=== PATIENT | female | born 1990 | race Caucasian/White ===

== ENCOUNTER 2016-09-20 15:38 | Emergency (ER) | payer OTHER ==
[~2016-09-20] VITALS: Ht 162.6 cm; Wt 90.7 kg
[~2016-09-20 15:38] MED LIST: DICLEGIS 10 MG-1 TCP PO; IBUPROFEN PRN PAIN; KEFLEX250 MG PO; MACROBID; MOTRIN800 MG PO; PRENATAL VITAMI1 T10 PO; PRENATAL VITS.; REGLAN1 MG/ML PO; ZOFRAN ODT4 MG PO; ZOFRAN4 M1 PO
[2016-09-20 16:21] VITALS: BP 126/72
--- NOTE | 2016-09-20 19:22 | NUR ---
Patient ambulated to bed 7. RN evaluating patient at bedside.
--- NOTE | 2016-09-20 19:32 | NUR ---
PT IS A 26/F THAT PRESENTS TO ED WITH C/O VOMITING AND RIGHT SIDED LOW BACK PAIN X1 WEEK. PT STATES NO OTHER MED HX. DENIES N/D; SKIN IS PINK/WARM/DRY; AAOX4 WITH EVEN AND STEADY GAIT; LUNGS CLEAR BL; HR EVEN AND REGULAR; PT DENIES ANY FEVER, CP, SOB, OR COUGH AT THIS TIME; PATIENT STATES PAIN OF 8/10 AT THIS TIME; VSS; PATIENT POSITIONED FOR COMFORT; HOB ELEVATED; BEDRAILS UP X2; BED DOWN. ER MD MADE AWARE OF PT STATUS.
[2016-09-20] MEDS ORDERED: NACL 0.9% 1,000 ML IV SCH (20:08)
[2016-09-20] MEDS ORDERED: KETOROLAC 30 MG/ML VIAL IVP ONE (20:10)
[2016-09-20] MEDS ORDERED: ONDANSETRON 4 MG ODT PO ONE (20:10)
[2016-09-20] MEDS ORDERED: ONDANSETRON 4 MG/2 ML VIAL IVP ONE (20:10)
--- NOTE | 2016-09-20 20:30 | NUR ---
PT TAKEN OFF UNIT TO CT VIA WHEELCHAIR
--- NOTE | 2016-09-20 20:38 | NUR ---
PT BACK ON UNIT FROM CT
[2016-09-20 21:57] VITALS: BP 118/58
--- NOTE | 2016-09-20 21:57 | NUR ---
Patient discharged with v/s stable. Written and verbal after care instructions given and explained. Patient alert, oriented and verbalized understanding of instructions. Ambulatory with steady gait. All questions addressed prior to discharge. ID band removed. Patient advised to follow up with PMD. Rx of ZOFRAN AND MOTRIN given. Patient educated on indication of medication including possible reaction and side effects. Opportunity to ask questions provided and answered.
== END 2016-09-20 21:57 | disposition home or self-care (01) ==
LOC: MED 15:38
DX: R11.2 Nausea with vomiting, unspecified (principal); R10.32 Left lower quadrant pain; F17.200 Nicotine dependence, unspecified, uncomplicated
CPT/HCPCS: 36415; 74176; 80053; 81001; 81025; 83690; 85025; 96361; 96374; 96375; 99285; J1885; J2405; J7030; S0119

== ENCOUNTER 2016-11-13 22:26 | Emergency (ER) | payer OTHER ==
[~2016-11-13] VITALS: Ht 162.6 cm; Wt 90.3 kg
[2016-11-13 22:31] VITALS: BP 122/69
[2016-11-13] MEDS ORDERED: KETOROLAC 30 MG/ML VIAL IM ONE (22:45)
--- NOTE | 2016-11-13 23:00 | NUR ---
PT TAKEN TO BED 8
--- NOTE | 2016-11-13 23:14 | NUR ---
PT RETURN FROM XRAY
--- NOTE | 2016-11-13 23:30 | NUR ---
26Y/F PATIENT PRESENTS TO ED WITH C/O RT. WRIST PAIN X 2 WKS. PATIENT TRIPPED AND FELL ON RT. SIDE. RT. WRIST PAIN. AAO X4, AMBULATORY WITH STEADY GAIT. RT. WRIST PAIN, NO SWELLING, ABLE TO MOVE ALL FINGERS, CAP REFILL <3 SECS. VSS, NO S/SX OF DISTRESS. ER MD MADE AWARE OF PATIENT STATUS.
--- NOTE | 2016-11-13 23:50 | NUR ---
Patient discharged with v/s stable. Written and verbal after care instructions given and explained. Patient alert, oriented and verbalized understanding of instructions. Ambulatory with steady gait. All questions addressed prior to discharge. ID band removed. Patient advised to follow up with PMD. Rx of NAPROSYN 500 MG given. Patient educated on indication of medication including possible reaction and side effects. Opportunity to ask questions provided and answered. RT. WRIST IMMOBILIZER APPLIED.
[2016-11-14 00:08] VITALS: BP 125/70
== END 2016-11-13 23:50 | disposition home or self-care (01) ==
LOC: MED 22:27
DX: S63.501A Unspecified sprain of right wrist, initial encounter (principal); F17.210 Nicotine dependence, cigarettes, uncomplicated; W19.XXXA Unspecified fall, initial encounter; Y93.51 Activity, roller skating (inline) and skateboarding; Y92.89 Other specified places as the place of occurrence of the external cause; Y99.8 Other external cause status
CPT/HCPCS: 29125; 73110; 96372; 99284; J1885

== ENCOUNTER 2016-11-24 07:12 | Emergency (ER) | payer OTHER ==
[~2016-11-24] VITALS: Ht 162.6 cm; Wt 93.4 kg
[2016-11-24 07:23] VITALS: BP 117/70
[2016-11-24] MEDS ORDERED: ONDANSETRON 4 MG ODT PO ONE (07:35)
--- NOTE | 2016-11-24 07:37 | NUR ---
PT CAME TO ER DUE TO VOMITING SINCE THURSDAY.PT STATES SHE VOMITTED DARK COLOR BLOOD THIS MORNING;W/STOMACH PAIN OF 5/10 NON RADIATING;DIARRHEA THIS MORNING;PT STATES SHE GIMENEZ S A THROBBING HEADACHE;DENIES CP/SOB/F AT THIS TIME;AAOX4;NO ACUTE DISTRESS NOTED;TUBAL LIGATION WAS DONE 2 YEARS AGO;STEADY GAIT;UNLABORED BREATHING;HOB ELEVATED;NEEDS ATTENDED;SAFETY MEASURES DONE;POSITIONED FOR COMFORT.
--- NOTE | 2016-11-24 07:37 | NUR ---
Note undone in EDM - 11/24/16 at 0801 by MEDANTWAN PT CAME TO ER DUE TO VOMITING SINCE THURSDAY.PT STATES SHE VOMITTED DARK COLOR BLOOD THIS MORNING;W/STOMACH PAIN OF 5/10 NON RADIATING;PT STATES SHE GIMENEZ S A THROBBING HEADACHE;DENIES CP/SOB/F/D AT THIS TIME;AAOX4;NO ACUTE DSITRESS NOTED;TUBAL LIGATION WAS DONE 2 YEARS AGO;STEADY GAIT;UNLABORED BREATHING;HOB ELEVATED;NEEDS ATTENDED;SAFETY MEASURES DONE;POSITIONED FOR COMFORT.
--- NOTE | 2016-11-24 07:40 | NUR ---
MEDS IS NOT AVAILABLE IN THE [facility] NULL CALLED PHARMACY;THEY WILL SEND MEDS JOEL.
--- NOTE | 2016-11-24 08:24 | NUR ---
PT STATES SHE STILL FEELS NAUSEATED;PT VOMITTED; NO ACUTE DISTRESS NOTED AT THIS TIME;WILL CONTINUE TO MONITOR PT.
[2016-11-24] MEDS ORDERED: NACL 0.9% 1,000 ML IV SCH (08:34)
[2016-11-24] MEDS ORDERED: ONDANSETRON 4 MG/2 ML VIAL IVP ONE (08:35)
--- NOTE | 2016-11-24 09:24 | NUR ---
PT RESTING ON BED;NO ACUTE DISTRESS NOTED AT THIS TIME;NEEDS ATTENDED;WILL CONTINUE TO MONITOR PT;
[2016-11-24] MEDS ORDERED: NACL 0.9% 1,000 ML IV ONE (09:45)
--- NOTE | 2016-11-24 10:13 | NUR ---
PT STATES SHE'S NOT FEELING NAUSEATED ANYMORE.WILL CONTINUE TO MONITOR PT.
[2016-11-24] MEDS ORDERED: SUMAtriptan 6 MG/0.5 ML VIAL SUBQ ONE (10:35)
[2016-11-24] MEDS ORDERED: diphenhydrAMINE 50 MG/ML VIAL IVP ONE (10:35)
[2016-11-24] MEDS ORDERED: PROCHLORPERAZINE 10 MG/2 ML VIAL IVP ONE (10:35)
--- NOTE | 2016-11-24 11:32 | NUR ---
PT SLEEPING;NO ACUTE DISTRESS NOTED AT THIS TIME;WILL CONTINUE TO MONITOR PT.
--- NOTE | 2016-11-24 13:20 | NUR ---
Patient discharged with v/s stable. Written and verbal after care instructions given and explained.Patient alert, oriented and verbalized understanding of instructions. Ambulatory with steady gait. All questions addressed prior to discharge. ID band removed. Patient advised to follow up with PMD. Rx of ZOFRAN given. Patient educated on indication of medication including possible reaction and side effects. Opportunity to ask questions provided and answered.
[2016-11-24 14:40] VITALS: BP 128/78
== END 2016-11-24 13:20 | disposition home or self-care (01) ==
LOC: MED 07:12
DX: K52.9 Noninfective gastroenteritis and colitis, unspecified (principal); G43.909 Migraine, unspecified, not intractable, without status migrainosus
CPT/HCPCS: 36415; 80053; 81001; 82150; 82272; 83690; 85025; 87045; 87427; 89055; 96361; 96372; 96374; 96375; 99284; J0780; J1200; J2405; J3030; J7030; S0119

== ENCOUNTER 2017-06-24 12:03 | Emergency (ER) | payer OTHER ==
[~2017-06-24] VITALS: Ht 157.5 cm; Wt 90.3 kg
[~2017-06-24 12:03] MED LIST changes: -DICLEGIS 10 MG-1 TCP PO; +IBUP-974 PO; -IBUPROFEN PRN PAIN; -KEFLEX250 MG PO; -MACROBID; -MOTRIN800 MG PO; -PRENATAL VITAMI1 T10 PO; -PRENATAL VITS.; -REGLAN1 MG/ML PO; -ZOFRAN ODT4 MG PO; -ZOFRAN4 M1 PO
[2017-06-24 12:10] VITALS: BP 126/58
--- NOTE | 2017-06-24 12:27 | NUR ---
ASSUMED NURSING CARE, CONCUR WITH TRIAGE ASSESSMENT. PLACED IN ER 11, ORIENTED TO PLAN OF CARE.
[2017-06-24] MEDS ORDERED: ONDANSETRON 4 MG ODT PO ONE (12:50)
[2017-06-24 13:09] LABS: APPEARANCE,URINE CLEAR (CLEAR); BILIRUBIN,URINE NEGATIVE (NEGATIVE); BLOOD, URINE NEGATIVE (NEGATIVE); COLOR,URINE YELLOW (YELLOW); LEUKOCYTE ESTERASE ,URINE NEGATIVE (NEGATIVE); NITRITE, URINE NEGATIVE (NEGATIVE); UGLUCOSE NEGATIVE (NEGATIVE)
--- NOTE | 2017-06-24 14:03 | NUR ---
PATIENT RESTING IN GURNEY, AWAITING CT ABDOMEN. VSWNL, NO DISTRESS.
--- NOTE | 2017-06-24 14:41 | NUR ---
Patient back from CT via wheelchair.
[2017-06-24] MEDS ORDERED: KETOROLAC 30 MG/ML VIAL IM ONE (15:35)
[2017-06-24 16:00] VITALS: BP 110/60
--- NOTE | 2017-06-24 16:09 | NUR ---
DISPO AND MEDICAL DECISION MAKING, DC HOME WITH INSTRUCTIONS AND PRESCRIPTION, PATIENT VERBALIZING RELIEF FROM PAIN. PATIENT UNDERSTANDING ALL INSTRUCTIONS ACCORDINGLY.
== END 2017-06-24 16:14 | disposition home or self-care (01) ==
LOC: MED 12:03
DX: N20.0 Calculus of kidney (principal); Z79.899 Other long term (current) drug therapy
CPT/HCPCS: 74176; 81003; 96372; 99285; J1885; S0119

== ENCOUNTER 2017-07-01 10:39 | Emergency (ER) | payer OTHER ==
[~2017-07-01] VITALS: Ht 162.6 cm; Wt 89.8 kg
[2017-07-01 10:56] VITALS: BP 139/79
[2017-07-01] MEDS: HYDROmorphone 1 MG/ML AMP IM ONE (11:29)
[2017-07-01] MEDS: KETOROLAC 60 MG/2 ML VIAL IM ONE (11:29)
[2017-07-01] MEDS ORDERED: HYDROmorphone PFS 2 MG/ML SYR ONE (11:32)
[2017-07-01 12:33] LABS: APPEARANCE,URINE CLEAR (CLEAR); BILIRUBIN,URINE NEGATIVE (NEGATIVE); BLOOD, URINE 1+ (NEGATIVE); COLOR,URINE YELLOW (YELLOW); LEUKOCYTE ESTERASE ,URINE NEGATIVE (NEGATIVE); NITRITE, URINE NEGATIVE (NEGATIVE); PH,URINE 6.5 (5.0-9.0); UGLUCOSE NEGATIVE (NEGATIVE)
[2017-07-01 13:03] LABS: RBC,URINE NONE SEEN /HPF (0-5); WBC,URINE 0-5 (RARE) /HPF (0-5)
[2017-07-01] MEDS: ONDANSETRON 4 MG ODT PO ONE (13:18)
[2017-07-01] MEDS: diphenhydrAMINE 50 MG/ML VIAL IM ONE (13:18)
[2017-07-01 13:31] VITALS: BP 125/81
== END 2017-07-01 13:31 | disposition home or self-care (01) ==
LOC: MED 10:39
DX: N20.0 Calculus of kidney (principal)
CPT/HCPCS: 81001; 81025; 96372; 99284; J1170; J1200; J1885; S0119

== ENCOUNTER 2017-11-27 00:25 | Emergency (ER) | payer OTHER ==
[~2017-11-27] VITALS: Ht 162.6 cm; Wt 91.7 kg
[2017-11-27 00:32] VITALS: BP 112/73
--- NOTE | 2017-11-27 00:43 | NUR ---
27Y F BIB SELF C/O RIGHT FLANK PAIN X 1 DAY. PT DENIES ANY N/V/D/,SOB, CP AT THE MOMENT. PT STATES PAIN IS INTERMITTENT, NON RADIAITING. PT STATES SHE ALSO HAS NON TRAUMATIC BACK PAIN. PT STATES SHE HAD SIMILAR PAIN WHEN SHE HAS UTI, BUT PRESENT SYMPTOMS ARE WORSE. PT AMBULATED TO ER BED WITH STEADY GAIT. ER MD DR LANE MADE AWARE
[2017-11-27] MEDS ORDERED: NACL 0.9% 1,000 ML IV ONE (01:09)
[2017-11-27] MEDS ORDERED: MORPHINE SULFATE 4 MG/ML SYR IVP ONE (01:10)
[2017-11-27] MEDS ORDERED: ONDANSETRON 4 MG/2 ML VIAL IVP ONE (01:10)
[2017-11-27 01:25] LABS: BASOPHILS # (AUTO) 0.1 K/uL (0.00-0.22); BASOPHILS % (AUTO) 0.6 % (0.0-2.0); EOSINOPHILS # (AUTO) 0.3 K/uL (0-0.4); EOSINOPHILS % (AUTO) 3.4 % (0.0-4.0); HEMATOCRIT 43.8 % (36-48); HEMOGLOBIN 14.8 g/dL (12.0-16.0); LYMPHOCYTES # (AUTO) 3.4 K/uL (2.5-16.5); LYMPHOCYTES % (AUTO) 33.1 % (20.5-51.1); MEAN CORPUSCULAR HEMOGLOBIN 30 pg (27-31); MEAN CORPUSCULAR HGB CONC 34 g/dL (33-37); MEAN CORPUSCULAR VOLUME 89.5 fL (80-94); MONOCYTES # (AUTO) 0.8 K/uL (0.8-1.0); MONOCYTES % (AUTO) 7.7 % (1.7-9.3); NEUTROPHILS # (AUTO) 5.6 K/uL (1.8-7.7); NEUTROPHILS % (AUTO) 55.2 % (42.2-75.2); PLATELET COUNT (AUTO) 330 K/uL (140-450); RED BLOOD CELL COUNT(AUTO) 4.89 MIL/uL (4.20-5.40); WHITE BLOOD COUNT (AUTO) 10.2 K/uL (4.8-10.8)
[2017-11-27 01:32] LABS: ANION GAP 12.4 (8-16); CARBON DIOXIDE 30.3 mmol/L (21-32); CREATININE 0.8 mg/dL (0.6-1.3); POTASSIUM 3.7 mmol/L (3.5-5.1)
[2017-11-27 01:38] LABS: ALBUMIN 3.8 g/dL (3.4-5.0); TOTAL BILIRUBIN 0.2 mg/dL (0.0-1.0)
--- NOTE | 2017-11-27 02:20 | NUR ---
IV removed, catheter intact and site benign. Applied folded 4x4 gauze and tape to stop bleeding.
--- NOTE | 2017-11-27 02:22 | NUR ---
Patient discharged with v/s stable. Written and verbal after care instructions given and explained. Patient alert, oriented and verbalized understanding of instructions. Ambulatory with steady gait. All questions addressed prior to discharge. ID band removed. Patient advised to follow up with PMD. Rx of NAPROSYN 500MG given. Patient educated on indication of medication including possible reaction and side effects. Opportunity to ask questions provided and answered.
[2017-11-27 02:23] VITALS: BP 115/63
== END 2017-11-27 02:23 | disposition home or self-care (01) ==
LOC: MED 00:25
DX: R10.9 Unspecified abdominal pain (principal); Z98.51 Tubal ligation status; F17.210 Nicotine dependence, cigarettes, uncomplicated
CPT/HCPCS: 36415; 74176; 80053; 81002; 81025; 83690; 85025; 96361; 96374; 96375; 99285; J2270; J2405; J7030

== ENCOUNTER 2018-04-26 22:11 | Emergency (ER) | payer OTHER ==
[~2018-04-26] VITALS: Ht 162.6 cm; Wt 90.7 kg
[2018-04-26 22:14] VITALS: BP 120/76
[2018-04-26] MEDS: NACL 0.9% 1,000 ML IV ONE (23:40)
[2018-04-26] MEDS: KETOROLAC 30 MG/ML VIAL IVP ONE (23:40)
[2018-04-26 23:41] LABS: BASOPHILS # (AUTO) 0.2 K/uL (0.00-0.22); BASOPHILS % (AUTO) 1.2 % (0.0-2.0); EOSINOPHILS # (AUTO) 0.6 K/uL (0-0.4); EOSINOPHILS % (AUTO) 4.1 % (0.0-4.0); HEMATOCRIT 38.5 % (36-48); HEMOGLOBIN 12.9 g/dL (12.0-16.0); LYMPHOCYTES # (AUTO) 2.9 K/uL (2.5-16.5); LYMPHOCYTES % (AUTO) 20.1 % (20.5-51.1); MEAN CORPUSCULAR HEMOGLOBIN 30 pg (27-31); MEAN CORPUSCULAR HGB CONC 34 g/dL (33-37); MEAN CORPUSCULAR VOLUME 89.7 fL (80-94); MONOCYTES # (AUTO) 0.7 K/uL (0.8-1.0); MONOCYTES % (AUTO) 5.1 % (1.7-9.3); NEUTROPHILS # (AUTO) 10.1 K/uL (1.8-7.7); NEUTROPHILS % (AUTO) 69.5 % (42.2-75.2); PLATELET COUNT (AUTO) 227 K/uL (140-450); RED BLOOD CELL COUNT(AUTO) 4.29 MIL/uL (4.20-5.40); RED CELL DISTRIBUTION WIDTH 13.1 % (11.6-13.7)
[2018-04-26 23:56] LABS: ANION GAP 9.7 (8-16); CARBON DIOXIDE 27.7 mmol/L (21-32); CREATININE 0.7 mg/dL (0.6-1.3); POTASSIUM 3.4 mmol/L (3.5-5.1)
[2018-04-26 23:59] LABS: WHITE BLOOD COUNT (AUTO) 14.5 K/uL (4.8-10.8)
[2018-04-27 00:03] LABS: ALBUMIN 2.9 g/dL (3.4-5.0); TOTAL BILIRUBIN 0.2 mg/dL (0.0-1.0)
[2018-04-27 00:40] VITALS: BP 128/79
== END 2018-04-27 00:40 | disposition home or self-care (01) ==
LOC: MED 22:11
DX: J02.8 Acute pharyngitis due to other specified organisms (principal); B96.89 Other specified bacterial agents as the cause of diseases classified elsewhere; R10.9 Unspecified abdominal pain; R11.0 Nausea; M54.9 Dorsalgia, unspecified; Z79.899 Other long term (current) drug therapy
CPT/HCPCS: 36415; 71045; 80053; 85025; 87081; 96374; 99285; J1885; Q0092; 99284

== ENCOUNTER 2018-05-03 21:34 | Emergency (ER) | payer OTHER ==
[~2018-05-03] VITALS: Ht 162.6 cm; Wt 90.7 kg
[2018-05-03 21:53] VITALS: BP 112/60
--- NOTE | 2018-05-03 21:55 | NUR ---
TO LOBBY A/W BED, DAVID MONTEIRO, LON NOTED
[2018-05-03 23:25] VITALS: BP 108/63
--- NOTE | 2018-05-04 01:55 | NUR ---
PATIENT LEFT WITHOUT BEING SEEN BY DR. ALLEN. NO FURTHER CARE PROVIDED FOR PATIENT.
[2018-05-04 02:54] LABS: APPEARANCE,URINE CLOUDY (CLEAR); BILIRUBIN,URINE NEGATIVE (NEGATIVE); BLOOD, URINE 3+ (NEGATIVE); COLOR,URINE YELLOW (YELLOW); LEUKOCYTE ESTERASE ,URINE 1+ (NEGATIVE); NITRITE, URINE NEGATIVE (NEGATIVE); PH,URINE 6.5 (5.0-9.0); UGLUCOSE NEGATIVE (NEGATIVE)
[2018-05-04 03:13] LABS: RBC,URINE TOO NUMEROUS TO COUN /HPF (0-5); WBC,URINE TOO MANY TO COUNT /HPF (0-5)
== END 2018-05-04 01:55 | disposition left against medical advice (07) ==
LOC: MED 21:34
DX: R31.9 Hematuria, unspecified (principal); Z53.21 Procedure and treatment not carried out due to patient leaving prior to being seen by health care provider
CPT/HCPCS: 81001; 87086; 99281

== ENCOUNTER 2018-05-04 10:57 | Emergency (ER) | payer OTHER ==
[~2018-05-04] VITALS: Ht 162.6 cm; Wt 91.6 kg
[2018-05-04 11:20] VITALS: BP 111/67
[2018-05-04] MEDS ORDERED: cefTRIAXone 1,000 MG VIAL ONE (12:30)
[2018-05-04] MEDS: NACL 0.9% 1,000 ML IV SCH (12:42)
[2018-05-04] MEDS: ONDANSETRON 4 MG/2 ML VIAL IVP ONE (12:43)
[2018-05-04] MEDS: KETOROLAC 30 MG/ML VIAL IVP ONE (12:44)
[2018-05-04] MEDS: cefTRIAXone 1,000 MG in DEXT 5% MINI-BAG PLUS 50 ML IV ONE (12:44)
[2018-05-04 13:05] LABS: BASOPHILS % (AUTO) 0.4 % (0.0-2.0); EOSINOPHILS # (AUTO) 0.2 K/uL (0-0.4); EOSINOPHILS % (AUTO) 1.7 % (0.0-4.0); HEMATOCRIT 40.8 % (36-48); HEMOGLOBIN 13.6 g/dL (12.0-16.0); LYMPHOCYTES # (AUTO) 2.1 K/uL (2.5-16.5); LYMPHOCYTES % (AUTO) 21.2 % (20.5-51.1); MEAN CORPUSCULAR HEMOGLOBIN 30 pg (27-31); MEAN CORPUSCULAR HGB CONC 33 g/dL (33-37); MEAN CORPUSCULAR VOLUME 89.9 fL (80-94); MONOCYTES # (AUTO) 0.7 K/uL (0.8-1.0); MONOCYTES % (AUTO) 6.6 % (1.7-9.3); NEUTROPHILS # (AUTO) 7.1 K/uL (1.8-7.7); NEUTROPHILS % (AUTO) 70.1 % (42.2-75.2); PLATELET COUNT (AUTO) 359 K/uL (140-450); RED BLOOD CELL COUNT(AUTO) 4.53 MIL/uL (4.20-5.40); RED CELL DISTRIBUTION WIDTH 12.9 % (11.6-13.7); WHITE BLOOD COUNT (AUTO) 10.1 K/uL (4.8-10.8)
[2018-05-04 13:16] LABS: CARBON DIOXIDE 26.5 mmol/L (21-32); CREATININE 0.8 mg/dL (0.6-1.3); POTASSIUM 3.5 mmol/L (3.5-5.1)
[2018-05-04 13:18] LABS: APPEARANCE,URINE CLOUDY (CLEAR); BILIRUBIN,URINE NEGATIVE (NEGATIVE); BLOOD, URINE 3+ (NEGATIVE); COLOR,URINE YELLOW (YELLOW); LEUKOCYTE ESTERASE ,URINE NEGATIVE (NEGATIVE); NITRITE, URINE POSITIVE (NEGATIVE); UGLUCOSE NEGATIVE (NEGATIVE)
[2018-05-04 13:22] LABS: ALBUMIN 3.2 g/dL (3.4-5.0); TOTAL BILIRUBIN 0.2 mg/dL (0.0-1.0)
[2018-05-04 13:32] LABS: RBC,URINE 3-10 (FEW) /HPF (0-5); WBC,URINE 0-5 (RARE) /HPF (0-5)
[2018-05-04 13:33] LABS: URINE AMORPHOUS URATE 2+ /HPF (None Seen)
[2018-05-04 15:10] VITALS: BP 114/64
== END 2018-05-04 15:10 | disposition home or self-care (01) ==
LOC: MED 10:57
DX: N12 Tubulo-interstitial nephritis, not specified as acute or chronic (principal); F17.200 Nicotine dependence, unspecified, uncomplicated; Z79.899 Other long term (current) drug therapy; Z87.442 Personal history of urinary calculi
CPT/HCPCS: 36415; 80053; 81001; 81025; 83605; 85025; 87040; 87086; 87186; 96365; 96375; 99284; J0696; J1885; J2405; J7030

== ENCOUNTER 2018-05-24 07:53 | Emergency (ER) | payer OTHER ==
[~2018-05-24] VITALS: Ht 162.6 cm; Wt 90.3 kg
[2018-05-24 08:10] VITALS: BP 116/78
[2018-05-24] MEDS ORDERED: NACL 0.9% 500 ML IV ONE ×2 (08:16)
[2018-05-24] MEDS ORDERED: ONDANSETRON 4 MG/2 ML VIAL IVP ONE (08:20)
[2018-05-24] MEDS ORDERED: KETOROLAC 30 MG/ML VIAL IVP ONE (08:20)
[2018-05-24 10:54] VITALS: BP 116/78
== END 2018-05-24 10:32 | disposition home or self-care (01) ==
LOC: MED 07:53
DX: T14.8XXA Other injury of unspecified body region, initial encounter (principal); M54.9 Dorsalgia, unspecified; R50.9 Fever, unspecified; R51 Headache; R11.2 Nausea with vomiting, unspecified; Z79.899 Other long term (current) drug therapy; Z87.442 Personal history of urinary calculi; X58.XXXA Exposure to other specified factors, initial encounter; Y93.89 Activity, other specified; Y92.89 Other specified places as the place of occurrence of the external cause; Y99.8 Other external cause status
CPT/HCPCS: 74176; 96361; 96374; 96375; 99284; J1885; J2405; J7030; 81002; 81025

== ENCOUNTER 2018-08-14 08:25 | Emergency (ER) | payer OTHER ==
[~2018-08-14] VITALS: Ht 162.6 cm; Wt 93.0 kg
[2018-08-14 08:34] VITALS: BP 108/71
[2018-08-14 09:49] VITALS: BP 110/70
== END 2018-08-14 09:49 | disposition home or self-care (01) ==
LOC: MED 08:25
DX: S80.01XA Contusion of right knee, initial encounter (principal); S80.211A Abrasion, right knee, initial encounter; Z79.1 Long term (current) use of non-steroidal anti-inflammatories (NSAID); Z87.442 Personal history of urinary calculi; W19.XXXA Unspecified fall, initial encounter; Y93.89 Activity, other specified; Y92.89 Other specified places as the place of occurrence of the external cause; Y99.8 Other external cause status
CPT/HCPCS: 73562; 99283; Q0092

== ENCOUNTER 2020-12-06 14:27 | Emergency (ER) | payer OTHER ==
[~2020-12-06] VITALS: Ht 162.6 cm; Wt 90.7 kg
[2020-12-06 14:31] VITALS: BP 119/68
--- NOTE | 2020-12-06 14:35 | NUR ---
PT TAKEN TO BED 1.
--- NOTE | 2020-12-06 14:51 | NUR ---
30/F PRESENTS TO ED WITH C/O RIGHT LOWER QUADRANT SHARP/STABBING 02/09 PAIN X10 DAYS. PATIENT STATES THE PAIN BEGAN 10 DAYS AGO AND HAS PROGRESSIVELY GOTTEN WORSE, AND IS NOW WORSENING WITH MOVEMENT AND WALKING AND STATES RLQ IS TENDER TO TOUCH. PATIENT STATES SHE HAS NOT TAKEN ANYTHING FOR THE PAIN. PATIENT STATES SHE HAS NAUSEA BUT DENIES VOMITING/DIARRHEA. PATIENT DENIES DYSURIA, HEMATURIA.
[2020-12-06] MEDS ORDERED: MORPHINE SULFATE 4 MG/ML SYR IVP ONE (15:35)
[2020-12-06] MEDS ORDERED: NACL 0.9% 1,000 ML IV ONE (15:35)
[2020-12-06] MEDS ORDERED: ONDANSETRON 4 MG/2 ML VIAL IVP ONE (15:35)
[2020-12-06 15:56] LABS: BASOPHILS # (AUTO) 0.1 K/uL (0.00-0.22); BASOPHILS % (AUTO) 0.8 % (0.0-2.0); EOSINOPHILS # (AUTO) 0.3 K/uL (0-0.4); EOSINOPHILS % (AUTO) 3.1 % (0.0-4.0); HEMATOCRIT 39.1 % (36-48); HEMOGLOBIN 13.4 g/dL (12.0-16.0); LYMPHOCYTES # (AUTO) 2.6 K/uL (2.5-16.5); LYMPHOCYTES % (AUTO) 26.3 % (20.5-51.1); MEAN CORPUSCULAR HEMOGLOBIN 31 pg (27-31); MEAN CORPUSCULAR HGB CONC 34 g/dL (33-37); MEAN CORPUSCULAR VOLUME 89.9 fL (80-94); MONOCYTES # (AUTO) 0.6 K/uL (0.8-1.0); MONOCYTES % (AUTO) 5.6 % (1.7-9.3); NEUTROPHILS # (AUTO) 6.3 K/uL (1.8-7.7); NEUTROPHILS % (AUTO) 64.2 % (42.2-75.2); PLATELET COUNT (AUTO) 310 K/uL (140-450); RED BLOOD CELL COUNT(AUTO) 4.35 MIL/uL (4.20-5.40); RED CELL DISTRIBUTION WIDTH 12.8 % (11.6-13.7); WHITE BLOOD COUNT (AUTO) 9.8 K/uL (4.8-10.8)
[2020-12-06 16:19] LABS: ALBUMIN 3.8 g/dL (3.4-5.0); ANION GAP 9.3 (8-16); CARBON DIOXIDE 28.3 mmol/L (21-32); CREATININE 0.7 mg/dL (0.6-1.3); POTASSIUM 3.6 mmol/L (3.5-5.1); TOTAL BILIRUBIN 0.3 mg/dL (0.0-1.0)
--- NOTE | 2020-12-06 16:34 | NUR ---
PATIENT TAKEN TO CT VIA W/C
--- NOTE | 2020-12-06 16:45 | NUR ---
PATIENT RETURNED FROM CT
--- NOTE | 2020-12-06 17:15 | NUR ---
PATIENT IS RESTING, DENIES PAIN OR NAUSEA RIGHT NOW. PLACED IN A GOWN ON THE INSPECTOR PAWNSHOP DETAIL. PATIENT PLACED IN A POSITION OF COMFORT.
--- NOTE | 2020-12-06 17:25 | NUR ---
ULTRASOUND AT BEDSIDE
[2020-12-06] MEDS ORDERED: ACET-2619 PO (18:55)
[2020-12-06] MEDS ORDERED: ONDA-24 PO (18:55)
[2020-12-06] MEDS ORDERED: ACET-9527 PO (18:55)
[2020-12-06 19:01] LABS: APPEARANCE,URINE CLEAR (CLEAR); BILIRUBIN,URINE NEGATIVE (NEGATIVE); BLOOD, URINE NEGATIVE (NEGATIVE); COLOR,URINE YELLOW (YELLOW); LEUKOCYTE ESTERASE ,URINE NEGATIVE (NEGATIVE); NITRITE, URINE NEGATIVE (NEGATIVE); UGLUCOSE NEGATIVE (NEGATIVE)
--- NOTE | 2020-12-06 19:07 | NUR ---
Patient discharged with v/s stable. Written and verbal after care instructions given and explained. Patient alert, oriented and verbalized understanding of instructions. Ambulatory with steady gait. All questions addressed prior to discharge. ID band removed. Patient advised to follow up with PMD. Rx of [place], Tylenol and Zofran given. Patient educated on indication of medication including possible reaction and side effects. Opportunity to ask questions provided and answered.
[2020-12-06 19:12] VITALS: BP 110/53
== END 2020-12-06 19:07 | disposition home or self-care (01) ==
LOC: MED 14:27
DX: N83.9 Noninflammatory disorder of ovary, fallopian tube and broad ligament, unspecified (principal); Z87.442 Personal history of urinary calculi
CPT/HCPCS: 36415; 74177; 76830; 76856; 80053; 81003; 81025; 83690; 84702; 85025; 87086; 93976; 96361; 96374; 96375; 99285; J2270; J2405; J7030; Q9967